=== PATIENT | female | born 1975 | race Caucasian/White ===

== ENCOUNTER 2017-04-16 19:29 | Emergency (ER) | payer OTHER ==
[~2017-04-16] VITALS: Ht 160 cm; Wt 56.7 kg
[~2017-04-16 19:29] MED LIST: Ambien5 MG PO; BUPR1 PO; BUPR150T2 PO; CHOL10002 PO; Ciloxan5 ML RIGHTEYE; DESV50 PO; ESTNORT PO; FERSU300 PO; FOLI1 PO; IRON; LEVE500 PO; MODA200 PO; Norco 5-325 Ta1 EACH PO; ORTHO TRI-CYCL1 EACH PO; ORTHO TRICYCLIN; OXCA150 PO; SENN187 PO; SERT100 PO; VIBRYD PO; Veetids 500500 MG PO
== END 2017-04-17 00:27 | disposition home or self-care (01) ==
LOC: ER 19:29
DX: S16.1XXA Strain of muscle, fascia and tendon at neck level, initial encounter (principal); S00.03XA Contusion of scalp, initial encounter; F32.9 Major depressive disorder, single episode, unspecified; Z88.8 Allergy status to other drugs, medicaments and biological substances; Z79.899 Other long term (current) drug therapy; Z98.84 Bariatric surgery status; W22.8XXA Striking against or struck by other objects, initial encounter
CPT/HCPCS: 70450; 72125; 99284

== ENCOUNTER 2018-05-02 12:00 | Emergency (ER) | payer MEDICARE ==
[~2018-05-02] VITALS: Ht 160 cm; Wt 54.4 kg
[2018-05-02] MEDS ORDERED: CEPH500 PO (12:57)
[2018-05-02] MEDS ORDERED: Bactrim Ds Tab1 EACH PO (12:57)
== END 2018-05-02 13:06 | disposition home or self-care (01) ==
LOC: ER 12:00
DX: L08.9 Local infection of the skin and subcutaneous tissue, unspecified (principal); R21 Rash and other nonspecific skin eruption; M79.605 Pain in left leg; Z88.8 Allergy status to other drugs, medicaments and biological substances; Z79.899 Other long term (current) drug therapy; F32.9 Major depressive disorder, single episode, unspecified
CPT/HCPCS: 99283

== ENCOUNTER → 2018-05-13 | Outpatient (CLI) | payer MEDICARE ==
[~2018-05-13] MED LIST changes: +Bactrim Ds Tab1 EACH PO; +CEPH500 PO
== END ==
LOC: LAB SHORT 17:25 → LAB EV 17:25
DX: S81.802A Unspecified open wound, left lower leg, initial encounter (principal)
CPT/HCPCS: 87070; 87205

== ENCOUNTER 2019-04-21 00:17 | Emergency (ER) | payer MEDICARE ==
[~2019-04-21] VITALS: Ht 157.5 cm; Wt 54.4 kg
[2019-04-21 01:16] LABS: BASOPHILS ABSOLUTE AUTO 0.02 K/mm3 (0.00-0.23); BASOPHILS PERCENT AUTO 0 % (0-2); EOSINOPHILS PERCENT AUTO 0 % (0-6); Hematocrit 39.3 % (33.0-51.0); Hemoglobin 11.4 g/dL (11.5-16.0); IMMATURE GRAN ABSOLUTE AUTO 0.02 K/mm3 (0.00-0.10); IMMATURE GRAN PERCENT AUTO 0 % (0-1); LYMPHOCYTES ABSOLUTE AUTO 2.16 K/mm3 (0.84-5.20); LYMPHOCYTES PERCENT AUTO 44 % (21-46); MONOCYTES ABSOLUTE AUTO 0.41 K/mm3 (0.16-1.47); MONOCYTES PERCENT AUTO 8 % (4-13); Mean Corpuscular HGB 25.8 pg (26.0-34.0); Mean Corpuscular Volume 89 fL (80-100); Mean Platelet Volume 10.4 fL (9.1-12.4); NEUTROPHILS ABSOLUTE AUTO 2.27 K/mm3 (1.96-9.15); NEUTROPHILS PERCENT AUTO 47 % (41-73); Platelet Count 221 K/mm3 (150-400); RDW Coefficient Variation 13.8 % (11.7-14.2); RDW Standard Deviation 45.1 fL (35.1-46.3); Red Blood Cell Count 4.42 M/mm3 (3.80-5.20); White Blood Cell Count 4.88 K/mm3 (4.00-11.30)
[2019-04-21] MEDS ORDERED: IBU800 M1 PO (01:18)
[2019-04-21] MEDS ORDERED: MODAFINIL200 MG PO (01:19)
[2019-04-21] MEDS ORDERED: EUTHYROX25 MC1 PO (01:19)
[2019-04-21] MEDS ORDERED: VIIBRYD40 MG PO (01:19)
[2019-04-21] MEDS ORDERED: DESV50 PO (01:20)
[2019-04-21] MEDS ORDERED: Portia1 EACH PO (01:21)
[2019-04-21] MEDS ORDERED: PROC5 PO (01:22)
[2019-04-21] MEDS ORDERED: SUMA25 PO (01:23)
[2019-04-21] MEDS ORDERED: TOPI25 PO (01:24)
[2019-04-21 01:44] LABS: Alanine Aminotransfer (ALT/SGP 34 U/L (12-78); Albumin, Blood 3.7 g/dL (3.4-5.0); Albumin/Globulin Ratio 1.1 (0.8-1.8); Alk Phos 113 U/L (50-136); Anion Gap 7 mmol/L (6-16); Aspartate Aminotrans (AST/SGOT 20 U/L (12-37); Bilirubin, Total 0.1 mg/dL (0.1-1.0); Blood Urea Nitrogen 8 mg/dL (8-24); Bun/Creatinine Ratio 10.6 (12.0-20.0); CO2, Blood 23 mmol/L (21-32); CPK Creatine Kinase 177 U/L (26-193); Calcium, Blood 8.5 mg/dL (8.5-10.1); Chloride, Blood 110 mmol/L (98-108); Creatinine, Blood 0.76 mg/dL (0.40-1.00); Globulin, Blood 3.4 g/dL (2.2-4.0); Glomerular Filtration Rate >60 (60-); Glucose, Blood 92 mg/dL (70-99); Potassium, Blood 3.6 mmol/L (3.5-5.5); Sodium, Blood 140 mmol/L (136-145); Total Protein, Blood 7.1 g/dL (6.4-8.2); Troponin I <0.015 ng/mL (0.000-0.040)
== END 2019-04-21 03:18 | disposition home or self-care (01) ==
LOC: ER 00:17
PROVIDERS: Emergency Medicine
DX: R29.810 Facial weakness (principal); F32.9 Major depressive disorder, single episode, unspecified; F20.9 Schizophrenia, unspecified; Z88.8 Allergy status to other drugs, medicaments and biological substances; Z79.899 Other long term (current) drug therapy
CPT/HCPCS: 36415; 70450; 80053; 82550; 84484; 85025; 93005; 93010; 99284-25; A9270

== ENCOUNTER 2022-03-24 17:50 | Inpatient (IN) | payer MEDICARE ==
[~2022-03-24] VITALS: Ht 160 cm; Wt 74.5 kg
[~2022-03-24 17:50] MED LIST changes: +EUTHYROX25 MC1 PO; +IBU800 M1 PO; +MODAFINIL200 MG PO; +PROC5 PO; +Portia1 EACH PO; +SUMA25 PO; +TOPI25 PO; +VIIBRYD40 MG PO
[2022-03-24 19:59] LABS: BASOPHILS ABSOLUTE AUTO 0.06 K/mm3 (0.00-0.23); BASOPHILS PERCENT AUTO 0 % (0-2); EOSINOPHILS ABSOLUTE AUTO 0.01 K/mm3 (0.00-0.68); EOSINOPHILS PERCENT AUTO 0 % (0-6); Hemoglobin 15.5 g/dL (11.5-16.0); IMMATURE GRAN ABSOLUTE AUTO 0.12 K/mm3 (0.00-0.10); IMMATURE GRAN PERCENT AUTO 1 % (0-1); LYMPHOCYTES ABSOLUTE AUTO 0.65 K/mm3 (0.84-5.20); LYMPHOCYTES PERCENT AUTO 4 % (21-46); MONOCYTES PERCENT AUTO 4 % (4-13); Mean Corpuscular HGB Conc 33.7 g/dL (31.5-36.5); Mean Corpuscular Volume 107 fL (80-100); Mean Platelet Volume 10.5 fL (9.1-12.4); NEUTROPHILS PERCENT AUTO 90 % (41-73); Platelet Count 217 K/mm3 (150-400); RDW Coefficient Variation 13.2 % (11.7-14.2); RDW Standard Deviation 52.1 fL (35.1-46.3); White Blood Cell Count 14.74 K/mm3 (4.00-11.30)
[2022-03-24 20:19] LABS: Albumin, Blood 3.7 g/dL (3.4-5.0); Bilirubin, Total 0.7 mg/dL (0.1-1.0); Bun/Creatinine Ratio 22.5 (12.0-20.0); Calcium, Blood 9.2 mg/dL (8.5-10.1); Creatinine, Blood 0.75 mg/dL (0.40-1.00); Globulin, Blood 3.6 g/dL (2.2-4.0); Potassium, Blood 4.5 mmol/L (3.5-5.5); Total Protein, Blood 7.3 g/dL (6.4-8.2)
[2022-03-24 23:53] LABS: Source, Urine Clean Catch
[2022-03-25 00:02] LABS: Appearance, Urine Cloudy (Clear); Bilirubin, Urine Neg (Neg); Blood, Urine 1+ (Neg); Color, Urine Yellow (P-Yellow); Glucose Qualitative, Urine 3+ (Neg); Ketones, Urine 4+ (Neg); Leukocyte Esterase, Urine Neg (Neg); Nitrite, Urine Neg (Neg); Protein, Urine Neg (Neg); Specific Gravity, Urine 1.015 (1.003-1.022); Urobilinogen, Urine NORM (Normal)
[2022-03-25 00:27] LABS: Amorphous Heavy (0-Heavy); Bacteria Few /hpf; Red Blood Cells, Urine 0-2 /hpf (0-2); Squamous Epithelial Cells Few /hpf (Few); White Blood Cells, Urine 0-2 /hpf (0-5)
[2022-03-25 07:30] LABS: Cholesterol 129 mg/dL (50-200); Triglycerides 52 mg/dL (30-160)
--- NOTE | 2022-03-25 20:12 | NUR ---
PT ADMITTED TO ROOM 362 AT 1425 FROM ED. SBA TO BED FROM STRETCHER. PT ALERT AND ORIENTED. ORIENTED TO ROOM SET UP AND SAFETY. FAMILY IS PRESENE AND SUPPORTIVE. PT IS NPO. NOTIFIED DR ROBERTSON PT IS HERE AND LIKELY NEEDS IVF AND SOMETHING AVAILABLE FOR NAUSEA. PT MEDICATED FOR PAIN.
--- NOTE | 2022-03-25 20:14 | NUR ---
SUMM- PT NPO, IVF INFUSLING. ICE SPARINGLY. PAIN UPPER EPIGASTRIC DESCRIBED A SHARP KNIFE CUTTING HER IN HALF. PAIN CONTROLLED WITH DILAUDID 1-2 Q3 HRS. PT HAD AN EPISODE OF SHARP ARYAN PAIN, NOTIFIED JUANISLLY, ORDER FOR EKD AND SUBSEQUEND TROP'S WHICH WERE NEGATIVE ALSO A NITRO GIVEN. PT HAS ANXIETY AND PAIN IN CHEST SHE THOUGHT MAY BE COINCIDING WITH ANXIETY. REPORTED ALL TO NIGHT RN.
--- NOTE | 2022-03-26 04:49 | NUR ---
SHIFT SUMMARY; PT WITH NO ACUTE CHANGES OVERNIGHT. THE PT RESTED IN BED FOR THE ENTIRETY OF THE NIGHT. PT DENIES ANY SOB OR CHEST PAIN THIS PM. THE PT STILL CONTINUES TO HAVE ABDOMINAL PAIN BUT THE PT IS ABLE TO GET ENOUGH RELIEF TO SLEEP FROM DILAUDID. NS REMAINS RUNNING AT 100ML/HR. PTS AT BEDSIDE THIS PM. PT CURRENTLY SLEEPING IN BED WITH THE BED IN THE LOWEST POSITION AND THE CALL LIGHT AT BEDSIDE.
[2022-03-26 05:09] LABS: BASOPHILS ABSOLUTE AUTO 0.04 K/mm3 (0.00-0.23); BASOPHILS PERCENT AUTO 0 % (0-2); EOSINOPHILS ABSOLUTE AUTO 0.01 K/mm3 (0.00-0.68); EOSINOPHILS PERCENT AUTO 0 % (0-6); Hematocrit 40.6 % (33.0-51.0); Hemoglobin 13.6 g/dL (11.5-16.0); IMMATURE GRAN ABSOLUTE AUTO 0.13 K/mm3 (0.00-0.10); IMMATURE GRAN PERCENT AUTO 1 % (0-1); LYMPHOCYTES ABSOLUTE AUTO 1.04 K/mm3 (0.84-5.20); LYMPHOCYTES PERCENT AUTO 6 % (21-46); MONOCYTES ABSOLUTE AUTO 0.89 K/mm3 (0.16-1.47); MONOCYTES PERCENT AUTO 5 % (4-13); Mean Corpuscular HGB 36.3 pg (26.0-34.0); Mean Corpuscular HGB Conc 33.5 g/dL (31.5-36.5); Mean Corpuscular Volume 108 fL (80-100); Mean Platelet Volume 10.8 fL (9.1-12.4); NEUTROPHILS ABSOLUTE AUTO 15.07 K/mm3 (1.96-9.15); NEUTROPHILS PERCENT AUTO 88 % (41-73); Platelet Count 166 K/mm3 (150-400); RDW Coefficient Variation 13.6 % (11.7-14.2); RDW Standard Deviation 54.5 fL (35.1-46.3); Red Blood Cell Count 3.75 M/mm3 (3.80-5.20); White Blood Cell Count 17.18 K/mm3 (4.00-11.30)
[2022-03-26 05:43] LABS: Calcium, Blood 8.2 mg/dL (8.5-10.1); Creatinine, Blood 0.58 mg/dL (0.40-1.00); Potassium, Blood 3.9 mmol/L (3.5-5.5)
--- NOTE | 2022-03-26 17:14 | NUR ---
DAYSHIFT SUMMARY Patient admitted for pancreatitis, c/o pain in epigastric & left flank. IV Dilaudid given for pain, pt also requested ice pack for pain relief. NPO & ice chips, no emesis this shift. Patient complained of nausea, Phenergan IV given, PRN effective. NS infusing continously. Plan is to continue to monitor, and transition to PO intake in next day or so.
[2022-03-27 05:17] LABS: BASOPHILS ABSOLUTE AUTO 0.04 K/mm3 (0.00-0.23); BASOPHILS PERCENT AUTO 0 % (0-2); EOSINOPHILS ABSOLUTE AUTO 0.08 K/mm3 (0.00-0.68); EOSINOPHILS PERCENT AUTO 1 % (0-6); Hematocrit 41.2 % (33.0-51.0); Hemoglobin 13.5 g/dL (11.5-16.0); IMMATURE GRAN ABSOLUTE AUTO 0.14 K/mm3 (0.00-0.10); IMMATURE GRAN PERCENT AUTO 1 % (0-1); LYMPHOCYTES ABSOLUTE AUTO 1.22 K/mm3 (0.84-5.20); LYMPHOCYTES PERCENT AUTO 8 % (21-46); MONOCYTES ABSOLUTE AUTO 1.04 K/mm3 (0.16-1.47); MONOCYTES PERCENT AUTO 7 % (4-13); Mean Corpuscular HGB 35.8 pg (26.0-34.0); Mean Corpuscular HGB Conc 32.8 g/dL (31.5-36.5); Mean Corpuscular Volume 109 fL (80-100); Mean Platelet Volume 10.8 fL (9.1-12.4); NEUTROPHILS ABSOLUTE AUTO 12.76 K/mm3 (1.96-9.15); NEUTROPHILS PERCENT AUTO 84 % (41-73); Platelet Count 181 K/mm3 (150-400); RDW Coefficient Variation 13.4 % (11.7-14.2); RDW Standard Deviation 54.8 fL (35.1-46.3); Red Blood Cell Count 3.77 M/mm3 (3.80-5.20); White Blood Cell Count 15.28 K/mm3 (4.00-11.30)
--- NOTE | 2022-03-27 05:31 | NUR ---
Rn summary: Patient is alert and oriented. She is independant up to BR. did stay in room all night with permision from Arcelia, Clinical coordinator, due to pt anxiety disorder. Pt has done well with pain, medicated x2 with dilaudid 1mg over the 12 hour shift. Pt did sleep well. She has taken some ice chips through the night. Breathsounds are course, some wheezing noted, deep breathing encouraged. Call light in reach.
[2022-03-27 05:51] LABS: Bun/Creatinine Ratio 9.6 (12.0-20.0); Calcium, Blood 8.4 mg/dL (8.5-10.1); Creatinine, Blood 0.52 mg/dL (0.40-1.00); Potassium, Blood 3.5 mmol/L (3.5-5.5)
--- NOTE | 2022-03-27 17:38 | NUR ---
DAYSHIFT SUMMARY Patient doing well this shift, bowel tones hypoactive. Encouraged patient to get OOB & amubulate hallways. Patient walked & took a shower. Advanced diet to clear liquids, patient tolerating diet. Switched to PO pain meds, Percocet given for severe pain, PRN effective. DC IV fluids. Vitals stable. Will continue to monitor.
--- NOTE | 2022-03-28 05:38 | NUR ---
SUPERINTENDENT TERMINAL SUMMARY: A&Ox4. PLEASANT AND COOPERATIVE WITH CARE. CALLS APPROPRIATELY AND IS ABLE TO COMMUNICATE OWN NEEDS EFFECTIVELY. ADVANCED DIET TO SOLIDS THIS EVENING AND WAS ABLE TO EAT A HALF OF A TURKEY SANDWICH. LATER IN THE MORNING REQUESTED A VANILLA PUDDING AND SOME APPLE JUICE TO WHICH SHE WAS ABLE TO MAINTAIN WITHOUT DIFFICULTY. C/O NAUSEA AROUND 0400; AM DOSE OF PANTOPRAZOLE ADMINISTERED SHE DID NOT WANT TO DO ANOTHER IV FOR PROMETHAZINE SINCE CURRENT IV IS IN WRIST. MEDICATED WITH IV DILAUDID x2 FOR FAST RELIEF OF ABD PAIN. VSS. LABS DRAWN THIS AM. WILL REPORT TO ONCOMING RN.
[2022-03-28] MEDS ORDERED: Percocet 5-3251 EACH PO (12:02)
--- NOTE | 2022-03-28 13:28 | NUR ---
PT DISCHARGED HOME AT 1225 WITH ALL PAPER WORK REVIEWED AND EDUCATIONAL MATERIAL SENT. PT STILL IS HAVING SOME MILD ABD PAIN AND WAS TREATED PER EMAR.NAUSE WAS ALSO TREATED PER EMAR. HARD SCRIPTS SENT WITH PT. PT INDEPENDENT AND MADE ALL NEED KNOWN. PT ESCORTED OUT VIA WHEEL CHAIR TO N ENTRANCE WITH SPOUSE TO TRANSPORT.
== END 2022-03-28 12:35 | disposition home or self-care (01) | DRG 440 ==
LOC: ER 17:50 → ERHOLD 17:51 → MEDS 17:51 → ER 17:51 → ERHOLD 03-25 11:51 → MEDS 03-25 11:51 → ERHOLD 03-25 11:52 → MEDS 03-25 14:29
PROVIDERS: Internal Medicine; Student in an Organized Health Care Education/Training Program; ADMIT Internal Medicine
DX: K85.90 Acute pancreatitis without necrosis or infection, unspecified (principal); E03.9 Hypothyroidism, unspecified; G40.909 Epilepsy, unspecified, not intractable, without status epilepticus; F32.A Depression, unspecified; E55.9 Vitamin D deficiency, unspecified; F10.10 Alcohol abuse, uncomplicated; R73.9 Hyperglycemia, unspecified; F98.8 Other specified behavioral and emotional disorders with onset usually occurring in childhood and adolescence; R00.0 Tachycardia, unspecified; R07.89 Other chest pain; Z88.8 Allergy status to other drugs, medicaments and biological substances; Z79.899 Other long term (current) drug therapy; Z79.2 Long term (current) use of antibiotics; Z98.84 Bariatric surgery status
CPT/HCPCS: 36415; 36416; 74177; 76705; 80048; 80053; 81001; 82465; 83690; 84478; 84484; 85025; 93005; 93010; 96374; 96375; 96376; 99285-25; A9270; C9113; J1170; J1650; J1885; J2405; J2550; J3010; J7030; J7120; Q9967